=== PATIENT | male | born 1965 | race Caucasian/White ===

== ENCOUNTER 2021-04-03 08:09 | Inpatient (IN) | payer MEDICAID ==
[~2021-04-03] VITALS: Ht 190.5 cm; Wt 87.1 kg
[2021-04-03] MEDS ORDERED: LORazepam 1 MG TABLET PO ONE (08:30)
[2021-04-03 08:40] LABS: BASOPHILS % (AUTO) 0.4 % (0.0-2.0); EOSINOPHILS % (AUTO) 0.2 % (1.0-6.0); HEMATOCRIT 41.5 % (41-53); LYMPHOCYTES # (AUTO) 0.8 K/uL (1.0-4.8); LYMPHOCYTES % (AUTO) 8.1 % (22.0-44.0); MEAN CORPUSCULAR HEMOGLOBIN 32.3 pg (26.0-34.0); MEAN CORPUSCULAR HGB CONC 33.7 G/dL (31.0-37.0); MEAN CORPUSCULAR VOLUME 96 fL (80-100); MONOCYTES # (AUTO) 0.6 K/uL (0.1-1.0); MONOCYTES % (AUTO) 5.8 % (2.0-9.0); NEUTROPHILS # (AUTO) 8.2 K/uL (1.8-7.7); PLATELET COUNT (AUTO) 259 K/uL (150-450); RED BLOOD CELL COUNT(AUTO) 4.33 MIL/uL (4.50-5.90); RED CELL DISTRIBUTION WIDTH 15.3 % (11.5-14.5)
[2021-04-03 08:43] LABS: NEUTROPHILS % (AUTO) 85.5 % (40.0-70.0)
[2021-04-03 08:50] LABS: ANION GAP 12 mmol/L (8-16); CALCIUM, TOTAL 8.9 mg/dL (8.8-10.5); CARBON DIOXIDE 24 mmol/L (22-29); CHLORIDE 100 mmol/L (98-107); CREATININE 0.91 mg/dL (0.60-1.30); GLOMERULAR FILTR. RATE CALC > 60 mL/min (>60); GLUCOSE,RANDOM 114 mg/dL (70-110); POTASSIUM 3.6 mmol/L (3.5-5.1); SODIUM SERUM 136 mmol/L (136-145); UREA NITROGEN, BLOOD 15 mg/dL (7-18)
[2021-04-03 08:56] LABS: ALANINE AMINOTRANSFERASE 33 U/L (12-78); ALBUMIN 4.2 g/dL (3.4-5.0); ALKALINE PHOSPHATASE 120 U/L (46-116); ASPARTATE AMINOTRANSFERASE 33 U/L (15-37); BILIRUBIN,TOTAL 0.6 mg/dL (0.1-1.0); TOTAL PROTEIN, SERUM 7.3 g/dL (6.4-8.2)
[2021-04-03 09:45] LABS: AMPHET/METH SCREEN,URINE NEGATIVE (NEGATIVE); BARBITURATE SCREEN, URINE NEGATIVE (NEGATIVE); BENZODIAZEPINES SCREEN,URINE NEGATIVE (NEGATIVE); CANNABINOID SCREEN,URINE NEGATIVE (NEGATIVE); COCAINE SCREEN,URINE NEGATIVE (NEGATIVE); METHADONE SCREEN, URINE NEGATIVE (NEGATIVE); OPIATE SCREEN,URINE NEGATIVE (NEGATIVE)
[2021-04-03 09:46] LABS: PHENCYCLIDINE SCREEN,URINE NEGATIVE (NEGATIVE)
[2021-04-03 11:14] LABS: COVID AG,FIA SOURCE NASOPHARYNGEAL
[2021-04-03 12:45] LABS: APPEARANCE,URINE CLEAR (CLEAR); BILIRUBIN,URINE NEGATIVE (NEGATIVE); GLUCOSE, URINE (UA) NEGATIVE (NEGATIVE); KETONES,URINE NEGATIVE (NEGATIVE); LEUKOCYTE ESTERASE ,URINE NEGATIVE (NEGATIVE); NITRATE,URINE NEGATIVE (NEGATIVE); OCCULT BLOOD,URINE TRACE (NEGATIVE); PH,URINE 6.5 (5.0-8.0); PROTEIN,URINE NEGATIVE (NEGATIVE); UROBILINOGEN,URINE 0.2 mg/dL (<=1.0)
[2021-04-03 13:02] LABS: BACTERIA,URINE None Seen /HPF (None Seen); RBC,URINE None Seen /HPF (0-2); SQUAMOUS EPITHELIAL CELL,UR Rare /LPF (None Seen); WBC,URINE None Seen /HPF (0-5)
[2021-04-03] MEDS: LORazepam 2 MG TABLET PO PRN (14:09)
[2021-04-03] MEDS ORDERED: CALCIUM CARBONATE 500 MG CHEWABLE TABLET CHEW ONE (14:15)
[2021-04-03] MEDS ORDERED: NICOTINE 21 MG/24 HOUR PATCH TD ONE (14:15)
[2021-04-03 18:32] VITALS: BP 133/80
[2021-04-04 06:57] LABS: CHOL/HDL RATIO 2.7 (4.2-7.3); FREE T4 (FREE THYROXINE) 1.08 ng/dL (0.76-1.46); THYROID STIMULATING HORMONE 0.46 uIU/mL (0.36-3.74)
[2021-04-04] MEDS ORDERED: LOPERAMIDE HCL 2 MG CAPSULE PO PRN (09:00)
[2021-04-04] MEDS ORDERED: MAGNESIUM HYDROXIDE SUSPENSION 30 ML UDCUP PO PRN (09:00)
[2021-04-04] MEDS ORDERED: ALBUTEROL SULFATE HFA 90 MCG/PUFF 8 GM INHALER IH PRN (09:00)
[2021-04-04] MEDS ORDERED: GuaiFENesin/D-METHORPHAN [SUGAR-FREE] 200-20MG/10 ML SYRUP UDCUP PO PRN (09:00)
[2021-04-04] MEDS ORDERED: PETROLATUM,WHITE 28 GM JELLY TP PRN (09:00)
[2021-04-04] MEDS ORDERED: ONDANSETRON HCL 4 MG TABLET PO PRN (09:00)
[2021-04-04] MEDS ORDERED: DOCUSATE SODIUM 100 MG CAPSULE PO PRN (09:00)
[2021-04-04] MEDS ORDERED: CloNIDine HCL 0.1 MG TABLET PO PRN (09:00)
[2021-04-04 09:53] VITALS: BP 105/70
[2021-04-04] MEDS: ASPIRIN 81 MG CHEWABLE TABLET PO SCH (09:53)
[2021-04-04] MEDS: LORazepam 2 MG TABLET PO PRN ×3 (10:19→22:27)
[2021-04-04] MEDS: OLANZapine 10 MG TABLET PO SCH (16:01)
[2021-04-04 16:02] VITALS: BP 124/83
[2021-04-04] MEDS: NICOTINE 14 MG/24 HOUR PATCH TD PRN (16:04)
[2021-04-04 16:28] VITALS: BP 124/83
[2021-04-04 22:27] VITALS: BP 123/60
[2021-04-05 08:19] VITALS: BP 128/86
[2021-04-05] MEDS: ACETAMINOPHEN 325 MG TABLET PO PRN (08:43)
[2021-04-05] MEDS: LORazepam 2 MG TABLET PO PRN ×3 (08:43→16:57)
[2021-04-05] MEDS: ASPIRIN 81 MG CHEWABLE TABLET PO SCH (08:44)
[2021-04-05] MEDS: OLANZapine 10 MG TABLET PO SCH ×2 (11:52→16:15)
[2021-04-05 13:32] VITALS: BP 128/86
[2021-04-05 16:11] VITALS: BP 108/73
[2021-04-05] MEDS: NICOTINE 14 MG/24 HOUR PATCH TD PRN (16:15)
[2021-04-06 05:54] VITALS: BP 125/85
[2021-04-06] MEDS: LORazepam 2 MG TABLET PO PRN ×3 (05:55→14:58)
[2021-04-06] MEDS: ASPIRIN 81 MG CHEWABLE TABLET PO SCH (09:11)
[2021-04-06] MEDS: OLANZapine 10 MG TABLET PO SCH ×2 (09:11→16:08)
[2021-04-06 10:28] VITALS: BP 127/82
[2021-04-06] MEDS: NICOTINE 14 MG/24 HOUR PATCH TD PRN (14:55)
[2021-04-06 16:33] VITALS: BP 115/88
[2021-04-06] MEDS: ZOLPIDEM TARTRATE 10 MG TABLET PO PRN (22:09)
[2021-04-07] MEDS: LORazepam 2 MG TABLET PO PRN ×4 (05:07→17:46)
[2021-04-07] MEDS: IBUPROFEN 400 MG TABLET PO PRN ×2 (05:07→16:39)
[2021-04-07 05:08] VITALS: BP 116/90
[2021-04-07 08:05] VITALS: BP 111/83
[2021-04-07 08:06] VITALS: BP 111/83
[2021-04-07] MEDS: OLANZapine 10 MG TABLET PO SCH ×2 (08:11→16:07)
[2021-04-07] MEDS: ASPIRIN 81 MG CHEWABLE TABLET PO SCH (08:11)
[2021-04-07] MEDS: NICOTINE 14 MG/24 HOUR PATCH TD PRN (08:19)
[2021-04-07 16:29] VITALS: BP 124/94
[2021-04-07] MEDS: ZOLPIDEM TARTRATE 10 MG TABLET PO PRN (22:43)
[2021-04-08] MEDS: LORazepam 2 MG TABLET PO PRN ×2 (06:29→12:27)
[2021-04-08 08:05] VITALS: BP 110/77
[2021-04-08] MEDS: IBUPROFEN 400 MG TABLET PO PRN (08:06)
[2021-04-08] MEDS: ASPIRIN 81 MG CHEWABLE TABLET PO SCH (08:06)
[2021-04-08] MEDS: OLANZapine 10 MG TABLET PO SCH ×2 (08:06→16:05)
[2021-04-08] MEDS: NICOTINE 14 MG/24 HOUR PATCH TD PRN (08:13)
[2021-04-08 09:06] VITALS: BP 111/72
[2021-04-08] MEDS: BuPROPion HCL XL 150 MG ER TABLET PO SCH (12:35)
[2021-04-08 16:00] VITALS: BP 132/93
[2021-04-08] MEDS: ZOLPIDEM TARTRATE 10 MG TABLET PO PRN (20:29)
[2021-04-09 04:24] VITALS: BP 114/78
[2021-04-09] MEDS: LORazepam 2 MG TABLET PO PRN ×3 (04:24→14:52)
[2021-04-09] MEDS: BuPROPion HCL XL 150 MG ER TABLET PO SCH (08:13)
[2021-04-09] MEDS: OLANZapine 10 MG TABLET PO SCH ×2 (08:13→16:28)
[2021-04-09] MEDS: ASPIRIN 81 MG CHEWABLE TABLET PO SCH (08:14)
[2021-04-09] MEDS: NICOTINE 14 MG/24 HOUR PATCH TD PRN (08:25)
[2021-04-09 10:11] VITALS: BP 118/79
[2021-04-09] MEDS: HALOPERIDOL 5 MG TABLET PO PRN (12:50)
[2021-04-09 16:00] VITALS: BP 132/93
[2021-04-09 16:28] VITALS: BP_SYST 119; BP_SYST 132; BP_DIAS 86; BP_DIAS 93
[2021-04-09] MEDS: IBUPROFEN 400 MG TABLET PO PRN (16:28)
[2021-04-09] MEDS: ZOLPIDEM TARTRATE 10 MG TABLET PO PRN (20:39)
[2021-04-10 03:45] VITALS: BP 121/88
[2021-04-10] MEDS: LORazepam 2 MG TABLET PO PRN ×2 (03:47→08:14)
[2021-04-10] MEDS: BuPROPion HCL XL 150 MG ER TABLET PO SCH (08:13)
[2021-04-10] MEDS: OLANZapine 10 MG TABLET PO SCH ×2 (08:13→16:10)
[2021-04-10] MEDS: ASPIRIN 81 MG CHEWABLE TABLET PO SCH (08:14)
[2021-04-10] MEDS: NICOTINE 14 MG/24 HOUR PATCH TD PRN (08:17)
[2021-04-10 08:49] VITALS: BP 110/82
[2021-04-10 14:08] LABS: COVID AG,FIA SOURCE NASOPHARYNGEAL
[2021-04-10 16:00] VITALS: BP 130/73
[2021-04-10] MEDS: LORazepam 1 MG TABLET PO PRN (16:19)
[2021-04-10] MEDS: ZOLPIDEM TARTRATE 10 MG TABLET PO PRN (20:11)
[2021-04-11 01:23] VITALS: BP 120/81
[2021-04-11] MEDS: LORazepam 1 MG TABLET PO PRN ×3 (01:23→18:58)
[2021-04-11] MEDS: ASPIRIN 81 MG CHEWABLE TABLET PO SCH (08:05)
[2021-04-11] MEDS: BuPROPion HCL XL 150 MG ER TABLET PO SCH (08:05)
[2021-04-11] MEDS: OLANZapine 10 MG TABLET PO SCH ×2 (08:05→16:10)
[2021-04-11 08:13] VITALS: BP 122/76
[2021-04-11] MEDS: NICOTINE 21 MG/24 HOUR PATCH TD PRN (08:19)
[2021-04-11 16:00] VITALS: BP 126/88
[2021-04-11] MEDS: MAG HYDROX/AL HYDROX/SIMETH ES 30 ML SUSPENSION UDCUP PO PRN (19:27)
[2021-04-11] MEDS: ZOLPIDEM TARTRATE 10 MG TABLET PO PRN (19:53)
[2021-04-12 05:01] VITALS: BP 120/85
[2021-04-12] MEDS: LORazepam 1 MG TABLET PO PRN ×2 (05:03→13:15)
[2021-04-12] MEDS: BuPROPion HCL XL 150 MG ER TABLET PO SCH (08:07)
[2021-04-12] MEDS: ASPIRIN 81 MG CHEWABLE TABLET PO SCH (08:07)
[2021-04-12] MEDS: OLANZapine 10 MG TABLET PO SCH ×2 (08:07→16:27)
[2021-04-12] MEDS: NICOTINE 21 MG/24 HOUR PATCH TD PRN (08:07)
[2021-04-12 10:23] VITALS: BP 115/67
[2021-04-12 16:22] VITALS: BP 140/90
[2021-04-12 18:00] VITALS: BP 140/85
[2021-04-12] MEDS: IBUPROFEN 400 MG TABLET PO PRN (18:00)
[2021-04-12 18:30] VITALS: BP 138/75
[2021-04-12] MEDS: ZOLPIDEM TARTRATE 10 MG TABLET PO PRN (19:58)
[2021-04-12] MEDS: MAG HYDROX/AL HYDROX/SIMETH ES 30 ML SUSPENSION UDCUP PO PRN (20:11)
[2021-04-13] MEDS: LORazepam 1 MG TABLET PO PRN ×2 (02:53→11:00)
[2021-04-13 03:03] VITALS: BP 120/88
[2021-04-13] MEDS: OLANZapine 10 MG TABLET PO SCH ×2 (08:23→16:30)
[2021-04-13] MEDS: BuPROPion HCL XL 150 MG ER TABLET PO SCH (08:23)
[2021-04-13] MEDS: ASPIRIN 81 MG CHEWABLE TABLET PO SCH (08:23)
[2021-04-13] MEDS: NICOTINE 21 MG/24 HOUR PATCH TD PRN (08:24)
[2021-04-13 11:11] VITALS: BP 154/99
[2021-04-13] MEDS: MAG HYDROX/AL HYDROX/SIMETH ES 30 ML SUSPENSION UDCUP PO PRN ×2 (13:40→19:23)
[2021-04-13 16:06] VITALS: BP 119/79
[2021-04-13 17:38] VITALS: BP 119/79
[2021-04-13 19:23] VITALS: BP 121/64
[2021-04-13] MEDS: ACETAMINOPHEN 325 MG TABLET PO PRN (19:23)
[2021-04-13] MEDS: ZOLPIDEM TARTRATE 10 MG TABLET PO PRN (20:03)
[2021-04-13 20:23] VITALS: BP 122/65
[2021-04-14] MEDS: LORazepam 1 MG TABLET PO PRN ×2 (03:10→11:20)
[2021-04-14 03:26] VITALS: BP 107/78
[2021-04-14] MEDS: NICOTINE 21 MG/24 HOUR PATCH TD PRN (08:29)
[2021-04-14] MEDS: BuPROPion HCL XL 150 MG ER TABLET PO SCH (08:29)
[2021-04-14] MEDS: ASPIRIN 81 MG CHEWABLE TABLET PO SCH (08:29)
[2021-04-14] MEDS: OLANZapine 10 MG TABLET PO SCH ×2 (08:29→16:45)
[2021-04-14 08:42] VITALS: BP 125/68
[2021-04-14 16:00] VITALS: BP 120/73
[2021-04-14] MEDS: ZOLPIDEM TARTRATE 10 MG TABLET PO PRN (20:13)
[2021-04-15 00:48] VITALS: BP 128/99
[2021-04-15] MEDS: LORazepam 1 MG TABLET PO PRN ×3 (00:50→17:09)
[2021-04-15] MEDS: OLANZapine 10 MG TABLET PO SCH ×2 (07:52→16:40)
[2021-04-15] MEDS: BuPROPion HCL XL 150 MG ER TABLET PO SCH (07:52)
[2021-04-15] MEDS: ASPIRIN 81 MG CHEWABLE TABLET PO SCH (07:53)
[2021-04-15] MEDS: NICOTINE 21 MG/24 HOUR PATCH TD PRN (07:53)
[2021-04-15 08:16] VITALS: BP 118/87
[2021-04-15 16:00] VITALS: BP 113/80
[2021-04-15 16:13] VITALS: BP 113/80
[2021-04-15 17:09] VITALS: BP 113/80
[2021-04-15] MEDS: MAG HYDROX/AL HYDROX/SIMETH ES 30 ML SUSPENSION UDCUP PO PRN (18:58)
[2021-04-15] MEDS: ZOLPIDEM TARTRATE 10 MG TABLET PO PRN (21:10)
[2021-04-16] MEDS: LORazepam 1 MG TABLET PO PRN ×2 (03:03→11:22)
[2021-04-16 03:09] VITALS: BP 117/65
[2021-04-16] MEDS: NICOTINE 21 MG/24 HOUR PATCH TD PRN (08:44)
[2021-04-16] MEDS: PARoxetine HCL 20 MG TABLET PO SCH (08:45)
[2021-04-16] MEDS: ASPIRIN 81 MG CHEWABLE TABLET PO SCH (08:45)
[2021-04-16] MEDS: BuPROPion HCL XL 150 MG ER TABLET PO SCH (08:46)
[2021-04-16] MEDS: OLANZapine 10 MG TABLET PO SCH ×2 (08:46→17:19)
[2021-04-16 09:38] VITALS: BP 119/91
[2021-04-16 16:00] VITALS: BP 119/85
[2021-04-16] MEDS: ZOLPIDEM TARTRATE 10 MG TABLET PO PRN (20:54)
[2021-04-17 05:00] VITALS: BP 123/90
[2021-04-17] MEDS: LORazepam 1 MG TABLET PO PRN ×2 (05:00→13:01)
[2021-04-17] MEDS: BuPROPion HCL XL 150 MG ER TABLET PO SCH (08:45)
[2021-04-17] MEDS: PARoxetine HCL 20 MG TABLET PO SCH (08:45)
[2021-04-17] MEDS: OLANZapine 10 MG TABLET PO SCH ×2 (08:45→16:29)
[2021-04-17] MEDS: ASPIRIN 81 MG CHEWABLE TABLET PO SCH (08:45)
[2021-04-17 08:56] VITALS: BP 136/74
[2021-04-17] MEDS: NICOTINE 21 MG/24 HOUR PATCH TD PRN (09:36)
[2021-04-17 16:00] VITALS: BP 119/82
[2021-04-17 16:06] LABS: COVID AG,FIA SOURCE NASOPHARYNGEAL
[2021-04-18 03:40] VITALS: BP 122/86
[2021-04-18] MEDS: LORazepam 1 MG TABLET PO PRN ×2 (03:40→12:02)
[2021-04-18 08:17] VITALS: BP 131/96
[2021-04-18] MEDS: PARoxetine HCL 20 MG TABLET PO SCH (08:43)
[2021-04-18] MEDS: OLANZapine 10 MG TABLET PO SCH ×2 (08:43→16:29)
[2021-04-18] MEDS: BuPROPion HCL XL 150 MG ER TABLET PO SCH (08:43)
[2021-04-18] MEDS: ASPIRIN 81 MG CHEWABLE TABLET PO SCH (08:43)
[2021-04-18] MEDS: NICOTINE 21 MG/24 HOUR PATCH TD PRN (08:44)
[2021-04-18 16:00] VITALS: BP 113/79
[2021-04-18] MEDS: ZOLPIDEM TARTRATE 10 MG TABLET PO PRN (23:58)
[2021-04-19] MEDS: LORazepam 1 MG TABLET PO PRN ×2 (05:04→13:16)
[2021-04-19 05:07] VITALS: BP 121/92
[2021-04-19] MEDS: ASPIRIN 81 MG CHEWABLE TABLET PO SCH (09:13)
[2021-04-19] MEDS: PARoxetine HCL 20 MG TABLET PO SCH (09:14)
[2021-04-19] MEDS: BuPROPion HCL XL 150 MG ER TABLET PO SCH (09:14)
[2021-04-19] MEDS: OLANZapine 10 MG TABLET PO SCH ×2 (09:14→16:20)
[2021-04-19] MEDS: NICOTINE 21 MG/24 HOUR PATCH TD PRN (09:18)
[2021-04-19 16:08] VITALS: BP 122/83
[2021-04-19] MEDS: ZOLPIDEM TARTRATE 10 MG TABLET PO PRN (22:07)
[2021-04-20] MEDS: LORazepam 1 MG TABLET PO PRN (04:10)
[2021-04-20] MEDS: OLANZapine 10 MG TABLET PO SCH ×2 (08:03→16:08)
[2021-04-20] MEDS: BuPROPion HCL XL 150 MG ER TABLET PO SCH (08:03)
[2021-04-20] MEDS: PARoxetine HCL 20 MG TABLET PO SCH (08:03)
[2021-04-20] MEDS: ASPIRIN 81 MG CHEWABLE TABLET PO SCH (08:03)
[2021-04-20] MEDS: NICOTINE 21 MG/24 HOUR PATCH TD PRN (08:04)
[2021-04-20 08:15] VITALS: BP 119/86
[2021-04-20] MEDS: LORazepam 0.5 MG TABLET PO PRN (12:10)
[2021-04-20] MEDS: HydrOXYzine PAMOATE 50 MG CAPSULE PO SCH ×2 (16:08→23:58)
[2021-04-20 16:18] VITALS: BP 145/94
[2021-04-20] MEDS: MAG HYDROX/AL HYDROX/SIMETH ES 30 ML SUSPENSION UDCUP PO PRN (19:21)
[2021-04-20] MEDS: ZOLPIDEM TARTRATE 10 MG TABLET PO PRN (20:03)
[2021-04-21] MEDS: LORazepam 0.5 MG TABLET PO PRN ×2 (03:53→12:45)
[2021-04-21] MEDS: HALOPERIDOL 5 MG TABLET PO PRN ×2 (03:53→16:12)
[2021-04-21 04:07] VITALS: BP 120/84
[2021-04-21 08:00] VITALS: BP 107/83
[2021-04-21] MEDS: OLANZapine 10 MG TABLET PO SCH ×2 (08:30→16:11)
[2021-04-21] MEDS: ASPIRIN 81 MG CHEWABLE TABLET PO SCH (08:30)
[2021-04-21] MEDS: BuPROPion HCL XL 150 MG ER TABLET PO SCH (08:30)
[2021-04-21] MEDS: HydrOXYzine PAMOATE 50 MG CAPSULE PO SCH ×3 (08:30→23:42)
[2021-04-21] MEDS: PARoxetine HCL 20 MG TABLET PO SCH (08:30)
[2021-04-21] MEDS: NICOTINE 21 MG/24 HOUR PATCH TD PRN (08:33)
[2021-04-21 09:30] VITALS: BP 107/83
[2021-04-21] MEDS: CYCLOBENZAPRINE HCL 10 MG TABLET PO SCH (09:33)
[2021-04-21] MEDS: IBUPROFEN 400 MG TABLET PO PRN (09:33)
[2021-04-21 16:00] VITALS: BP 101/77
[2021-04-21 16:08] VITALS: BP 101/71
[2021-04-21] MEDS: ZOLPIDEM TARTRATE 10 MG TABLET PO PRN (21:15)
[2021-04-22 02:58] VITALS: BP 141/90
[2021-04-22] MEDS: LORazepam 0.5 MG TABLET PO PRN ×2 (03:00→11:06)
[2021-04-22 08:05] VITALS: BP 118/73
[2021-04-22] MEDS: ASPIRIN 81 MG CHEWABLE TABLET PO SCH (08:08)
[2021-04-22] MEDS: PARoxetine HCL 20 MG TABLET PO SCH (08:09)
[2021-04-22] MEDS: CYCLOBENZAPRINE HCL 10 MG TABLET PO SCH (08:09)
[2021-04-22] MEDS: BuPROPion HCL XL 150 MG ER TABLET PO SCH (08:09)
[2021-04-22] MEDS: OLANZapine 10 MG TABLET PO SCH ×2 (08:09→16:41)
[2021-04-22] MEDS: HydrOXYzine PAMOATE 50 MG CAPSULE PO SCH ×3 (08:10→23:58)
[2021-04-22] MEDS: NICOTINE 21 MG/24 HOUR PATCH TD PRN (08:14)
[2021-04-22] MEDS: HALOPERIDOL 5 MG TABLET PO PRN (16:49)
[2021-04-22] MEDS: MAG HYDROX/AL HYDROX/SIMETH ES 30 ML SUSPENSION UDCUP PO PRN (17:01)
[2021-04-22 17:55] VITALS: BP 122/86
[2021-04-22] MEDS: ZOLPIDEM TARTRATE 10 MG TABLET PO PRN (23:17)
[2021-04-23 05:35] VITALS: BP 114/81
[2021-04-23] MEDS: LORazepam 0.5 MG TABLET PO PRN ×2 (05:41→13:57)
[2021-04-23] MEDS: HALOPERIDOL 5 MG TABLET PO PRN ×2 (05:42→13:37)
[2021-04-23] MEDS: CYCLOBENZAPRINE HCL 10 MG TABLET PO SCH (07:59)
[2021-04-23] MEDS: ASPIRIN 81 MG CHEWABLE TABLET PO SCH (08:00)
[2021-04-23] MEDS: BuPROPion HCL XL 150 MG ER TABLET PO SCH (08:00)
[2021-04-23] MEDS: PARoxetine HCL 20 MG TABLET PO SCH (08:00)
[2021-04-23] MEDS: OLANZapine 10 MG TABLET PO SCH ×2 (08:00→16:11)
[2021-04-23] MEDS: HydrOXYzine PAMOATE 50 MG CAPSULE PO SCH ×3 (08:03→23:46)
[2021-04-23] MEDS: NICOTINE 21 MG/24 HOUR PATCH TD PRN (08:04)
[2021-04-23 08:23] VITALS: BP 113/79
[2021-04-23 16:00] VITALS: BP 135/91
[2021-04-23] MEDS: MAG HYDROX/AL HYDROX/SIMETH ES 30 ML SUSPENSION UDCUP PO PRN (16:56)
[2021-04-23] MEDS: ZOLPIDEM TARTRATE 10 MG TABLET PO PRN (20:01)
[2021-04-24 01:55] VITALS: BP 112/79
[2021-04-24] MEDS: HALOPERIDOL 5 MG TABLET PO PRN ×2 (01:55→12:25)
[2021-04-24] MEDS: LORazepam 0.5 MG TABLET PO PRN ×2 (01:55→13:06)
[2021-04-24] MEDS: PARoxetine HCL 20 MG TABLET PO SCH (07:48)
[2021-04-24] MEDS: ASPIRIN 81 MG CHEWABLE TABLET PO SCH (07:48)
[2021-04-24] MEDS: OLANZapine 10 MG TABLET PO SCH ×2 (07:48→16:22)
[2021-04-24] MEDS: BuPROPion HCL XL 150 MG ER TABLET PO SCH (07:48)
[2021-04-24] MEDS: HydrOXYzine PAMOATE 50 MG CAPSULE PO SCH ×2 (07:48→16:22)
[2021-04-24] MEDS: NICOTINE 21 MG/24 HOUR PATCH TD PRN (07:50)
[2021-04-24] MEDS: CYCLOBENZAPRINE HCL 10 MG TABLET PO SCH (07:53)
[2021-04-24 09:44] VITALS: BP 130/79
[2021-04-24 16:00] VITALS: BP 93/52
[2021-04-24] MEDS: BENZTROPINE MESYLATE 1 MG TABLET PO SCH (16:51)
[2021-04-24] MEDS: MAG HYDROX/AL HYDROX/SIMETH ES 30 ML SUSPENSION UDCUP PO PRN (16:52)
[2021-04-24 20:24] LABS: COVID AG,FIA SOURCE NASAL SWAB
[2021-04-24] MEDS: ZOLPIDEM TARTRATE 10 MG TABLET PO PRN (21:35)
[2021-04-25] MEDS: HydrOXYzine PAMOATE 50 MG CAPSULE PO SCH ×3 (00:03→16:03)
[2021-04-25] MEDS: HALOPERIDOL 5 MG TABLET PO PRN ×2 (04:58→14:51)
[2021-04-25 04:59] VITALS: BP 114/78
[2021-04-25 08:02] VITALS: BP 106/77
[2021-04-25] MEDS: PARoxetine HCL 20 MG TABLET PO SCH (08:05)
[2021-04-25] MEDS: BENZTROPINE MESYLATE 1 MG TABLET PO SCH ×2 (08:05→16:18)
[2021-04-25] MEDS: ASPIRIN 81 MG CHEWABLE TABLET PO SCH (08:05)
[2021-04-25] MEDS: OLANZapine 10 MG TABLET PO SCH ×2 (08:05→16:16)
[2021-04-25] MEDS: BuPROPion HCL XL 150 MG ER TABLET PO SCH (08:05)
[2021-04-25] MEDS: CYCLOBENZAPRINE HCL 10 MG TABLET PO SCH (08:05)
[2021-04-25] MEDS: LORazepam 0.5 MG TABLET PO PRN ×2 (08:06→16:32)
[2021-04-25] MEDS: NICOTINE 21 MG/24 HOUR PATCH TD PRN (08:06)
[2021-04-25] MEDS: MAG HYDROX/AL HYDROX/SIMETH ES 30 ML SUSPENSION UDCUP PO PRN (16:04)
[2021-04-25 16:43] VITALS: BP 119/78
[2021-04-25] MEDS: ZOLPIDEM TARTRATE 10 MG TABLET PO PRN (22:11)
[2021-04-26] MEDS: HydrOXYzine PAMOATE 50 MG CAPSULE PO SCH ×3 (00:04→16:39)
[2021-04-26] MEDS: HALOPERIDOL 5 MG TABLET PO PRN ×2 (04:35→17:18)
[2021-04-26 04:36] VITALS: BP 123/82
[2021-04-26] MEDS: NICOTINE 21 MG/24 HOUR PATCH TD PRN (07:52)
[2021-04-26] MEDS: LORazepam 0.5 MG TABLET PO PRN ×2 (07:53→20:01)
[2021-04-26] MEDS: ASPIRIN 81 MG CHEWABLE TABLET PO SCH (08:02)
[2021-04-26] MEDS: BENZTROPINE MESYLATE 1 MG TABLET PO SCH ×2 (08:02→16:39)
[2021-04-26] MEDS: CYCLOBENZAPRINE HCL 10 MG TABLET PO SCH (08:02)
[2021-04-26] MEDS: PARoxetine HCL 20 MG TABLET PO SCH (08:02)
[2021-04-26] MEDS: OLANZapine 10 MG TABLET PO SCH ×2 (08:02→16:39)
[2021-04-26] MEDS: BuPROPion HCL XL 150 MG ER TABLET PO SCH (08:02)
[2021-04-26 08:30] VITALS: BP 108/74
[2021-04-26] MEDS: IBUPROFEN 400 MG TABLET PO PRN (08:32)
[2021-04-26 09:30] VITALS: BP 111/63
[2021-04-26 12:06] VITALS: BP 105/63
[2021-04-26 16:05] VITALS: BP 115/80
[2021-04-26] MEDS: ZOLPIDEM TARTRATE 10 MG TABLET PO PRN (20:01)
[2021-04-27] MEDS: HydrOXYzine PAMOATE 50 MG CAPSULE PO SCH ×3 (00:08→16:11)
[2021-04-27 06:51] VITALS: BP 108/80
[2021-04-27] MEDS: LORazepam 0.5 MG TABLET PO PRN ×2 (06:51→16:21)
[2021-04-27] MEDS: NICOTINE 21 MG/24 HOUR PATCH TD PRN (07:54)
[2021-04-27] MEDS: CYCLOBENZAPRINE HCL 10 MG TABLET PO SCH (07:55)
[2021-04-27] MEDS: ASPIRIN 81 MG CHEWABLE TABLET PO SCH (07:55)
[2021-04-27] MEDS: PARoxetine HCL 20 MG TABLET PO SCH (07:55)
[2021-04-27] MEDS: BENZTROPINE MESYLATE 1 MG TABLET PO SCH ×2 (07:55→16:11)
[2021-04-27] MEDS: BuPROPion HCL XL 150 MG ER TABLET PO SCH (07:55)
[2021-04-27] MEDS: OLANZapine 10 MG TABLET PO SCH ×2 (07:55→16:11)
[2021-04-27 08:43] VITALS: BP 106/80
[2021-04-27] MEDS: HALOPERIDOL 5 MG TABLET PO PRN (12:45)
[2021-04-27 16:21] VITALS: BP 125/82
[2021-04-27] MEDS: ZOLPIDEM TARTRATE 10 MG TABLET PO PRN (22:32)
[2021-04-28] MEDS: HydrOXYzine PAMOATE 50 MG CAPSULE PO SCH ×4 (00:22→23:51)
[2021-04-28 01:13] VITALS: BP 106/74
[2021-04-28 05:22] VITALS: BP 122/89
[2021-04-28] MEDS: LORazepam 0.5 MG TABLET PO PRN (05:22)
[2021-04-28] MEDS: NICOTINE 21 MG/24 HOUR PATCH TD PRN (08:00)
[2021-04-28] MEDS: HALOPERIDOL 5 MG TABLET PO PRN (08:01)
[2021-04-28] MEDS: CYCLOBENZAPRINE HCL 10 MG TABLET PO SCH (08:02)
[2021-04-28] MEDS: PARoxetine HCL 20 MG TABLET PO SCH (08:02)
[2021-04-28] MEDS: BENZTROPINE MESYLATE 1 MG TABLET PO SCH ×2 (08:03→16:02)
[2021-04-28] MEDS: BuPROPion HCL XL 150 MG ER TABLET PO SCH (08:03)
[2021-04-28] MEDS: OLANZapine 10 MG TABLET PO SCH ×2 (08:03→16:02)
[2021-04-28] MEDS: ASPIRIN 81 MG CHEWABLE TABLET PO SCH (08:03)
[2021-04-28 08:30] VITALS: BP 115/81
[2021-04-28 16:00] VITALS: BP 119/79
[2021-04-28] MEDS: ZOLPIDEM TARTRATE 10 MG TABLET PO PRN (22:00)
[2021-04-29] MEDS: LORazepam 0.5 MG TABLET PO PRN (04:22)
[2021-04-29] MEDS: HALOPERIDOL 5 MG TABLET PO PRN (04:22)
[2021-04-29 04:23] VITALS: BP 117/84
[2021-04-29] MEDS: CYCLOBENZAPRINE HCL 10 MG TABLET PO SCH (08:33)
[2021-04-29] MEDS: BuPROPion HCL XL 150 MG ER TABLET PO SCH (08:33)
[2021-04-29] MEDS: BENZTROPINE MESYLATE 1 MG TABLET PO SCH ×2 (08:33→16:08)
[2021-04-29] MEDS: PARoxetine HCL 20 MG TABLET PO SCH (08:34)
[2021-04-29] MEDS: HydrOXYzine PAMOATE 50 MG CAPSULE PO SCH ×3 (08:34→23:35)
[2021-04-29] MEDS: ASPIRIN 81 MG CHEWABLE TABLET PO SCH (08:34)
[2021-04-29] MEDS: OLANZapine 10 MG TABLET PO SCH ×2 (08:34→16:07)
[2021-04-29] MEDS: NICOTINE 21 MG/24 HOUR PATCH TD PRN (08:39)
[2021-04-29 09:40] VITALS: BP 110/82
[2021-04-29 16:18] VITALS: BP 125/85
[2021-04-29] MEDS: ZOLPIDEM TARTRATE 10 MG TABLET PO PRN (21:14)
[2021-04-30 04:55] VITALS: BP 128/86
[2021-04-30] MEDS: HALOPERIDOL 5 MG TABLET PO PRN ×2 (05:15→16:35)
[2021-04-30] MEDS: LORazepam 0.5 MG TABLET PO PRN ×2 (05:15→16:35)
[2021-04-30] MEDS: ASPIRIN 81 MG CHEWABLE TABLET PO SCH (08:26)
[2021-04-30] MEDS: HydrOXYzine PAMOATE 50 MG CAPSULE PO SCH ×3 (08:26→23:42)
[2021-04-30] MEDS: OLANZapine 10 MG TABLET PO SCH ×2 (08:26→16:18)
[2021-04-30] MEDS: PARoxetine HCL 20 MG TABLET PO SCH (08:26)
[2021-04-30] MEDS: BuPROPion HCL XL 150 MG ER TABLET PO SCH (08:26)
[2021-04-30] MEDS: CYCLOBENZAPRINE HCL 10 MG TABLET PO SCH (08:27)
[2021-04-30] MEDS: BENZTROPINE MESYLATE 1 MG TABLET PO SCH ×2 (08:27→16:18)
[2021-04-30 08:35] VITALS: BP 125/86
[2021-04-30] MEDS: NICOTINE 21 MG/24 HOUR PATCH TD PRN (08:49)
[2021-04-30] MEDS: MAG HYDROX/AL HYDROX/SIMETH ES 30 ML SUSPENSION UDCUP PO PRN ×2 (11:17→16:36)
[2021-04-30 16:25] VITALS: BP 133/92
[2021-04-30] MEDS: ZOLPIDEM TARTRATE 10 MG TABLET PO PRN (21:58)
[2021-05-01] MEDS: LORazepam 0.5 MG TABLET PO PRN (05:01)
[2021-05-01] MEDS: HALOPERIDOL 5 MG TABLET PO PRN ×3 (05:01→17:54)
[2021-05-01] MEDS: BENZTROPINE MESYLATE 1 MG TABLET PO SCH ×2 (08:19→16:12)
[2021-05-01] MEDS: BuPROPion HCL XL 150 MG ER TABLET PO SCH (08:19)
[2021-05-01] MEDS: ASPIRIN 81 MG CHEWABLE TABLET PO SCH (08:19)
[2021-05-01] MEDS: CYCLOBENZAPRINE HCL 10 MG TABLET PO SCH (08:20)
[2021-05-01] MEDS: HydrOXYzine PAMOATE 50 MG CAPSULE PO SCH ×2 (08:20→16:12)
[2021-05-01] MEDS: OLANZapine 10 MG TABLET PO SCH ×2 (08:20→16:12)
[2021-05-01] MEDS: PARoxetine HCL 20 MG TABLET PO SCH (08:20)
[2021-05-01] MEDS: NICOTINE 21 MG/24 HOUR PATCH TD PRN (08:21)
[2021-05-01 08:25] VITALS: BP 115/73
[2021-05-01 12:55] LABS: COVID AG,FIA SOURCE NASOPHARYNGEAL
[2021-05-01 16:24] VITALS: BP 137/96
[2021-05-01] MEDS: MAG HYDROX/AL HYDROX/SIMETH ES 30 ML SUSPENSION UDCUP PO PRN (16:29)
[2021-05-01] MEDS: ZOLPIDEM TARTRATE 10 MG TABLET PO PRN (20:53)
[2021-05-02] MEDS: HydrOXYzine PAMOATE 50 MG CAPSULE PO SCH ×2 (00:05→08:07)
[2021-05-02] MEDS: HALOPERIDOL 5 MG TABLET PO PRN ×2 (00:46→05:19)
[2021-05-02 00:53] VITALS: BP 125/90
[2021-05-02] MEDS: MAG HYDROX/AL HYDROX/SIMETH ES 30 ML SUSPENSION UDCUP PO PRN (01:20)
[2021-05-02 05:19] VITALS: BP 138/93
[2021-05-02 08:00] VITALS: BP 142/92
[2021-05-02] MEDS ORDERED: QUEtiapine FUMARATE 25 MG TABLET PO PRN (08:00)
[2021-05-02] MEDS: OLANZapine 10 MG TABLET PO SCH (08:06)
[2021-05-02] MEDS: PARoxetine HCL 20 MG TABLET PO SCH (08:06)
[2021-05-02] MEDS: BuPROPion HCL XL 150 MG ER TABLET PO SCH (08:06)
[2021-05-02] MEDS: ASPIRIN 81 MG CHEWABLE TABLET PO SCH (08:06)
[2021-05-02] MEDS: NICOTINE 21 MG/24 HOUR PATCH TD PRN (08:06)
[2021-05-02] MEDS: BENZTROPINE MESYLATE 1 MG TABLET PO SCH (08:07)
[2021-05-02] MEDS: CYCLOBENZAPRINE HCL 10 MG TABLET PO SCH (08:07)
[2021-05-02] MEDS ORDERED: BENZ1TAB10 PO (13:44)
[2021-05-02] MEDS ORDERED: BUPR-93 PO (13:44)
[2021-05-02] MEDS ORDERED: HYDR50CA9 PO (13:44)
[2021-05-02] MEDS ORDERED: ASPI-1450 PO (13:44)
[2021-05-02] MEDS ORDERED: PARO-38 PO (13:44)
[2021-05-02] MEDS ORDERED: OLAN10TA74 PO (13:44)
[2021-05-02] MEDS ORDERED: CYCL10 PO (13:44)
== END 2021-05-02 14:25 | disposition home or self-care (01) | DRG 750 ==
LOC: EMS 08:11 → 3EI 17:35
PROVIDERS: ADMIT Psychiatry & Neurology Psychiatry; ATTEND Psychiatry & Neurology Psychiatry
DX: F20.0 Paranoid schizophrenia (principal); R45.851 Suicidal ideations; R45.850 Homicidal ideations; Z59.0 Homelessness; F32.9 Major depressive disorder, single episode, unspecified; F41.9 Anxiety disorder, unspecified; Z86.73 Personal history of transient ischemic attack (TIA), and cerebral infarction without residual deficits; Z20.822 Contact with and (suspected) exposure to COVID-19
CPT/HCPCS: 80053; 80061; 81001; 81003; 83036; 84439; 84443; 85025; 99285; G0480